=== PATIENT | female | born 1965 | race Caucasian/White ===

== ENCOUNTER 2023-09-28 21:38 | Observation (INO) | payer BC ==
--- OUTSIDE RECORDS SUMMARY | 2023-09-28 21:41 | XMS REPORT | Continuity of Care Document ---
Author Name Unknown Address [address] [place] [address] [facility] thconnect Address [address] [facility] [address] [place] [address] Care Team Providers Care Form Raiser Name Role Phone JUAN ALBERTO STEPHENSON Primary Care Physician Unavailab le Wade Montes De Oca Attending Clinician Unavailable GC_SWHATBIC_Cone_S Attending Clinician Unavailab le GC_SWHATBIC_Anding_R Attending Clinician Unavail able RADIOLOGY Attending Clinician Unavailable JUAN ALBERTO STEPHENSON Attending Clinician Unavailable Chris MILLING MACHINE OPERATOR GEARJuan Alberto Attending Clinician [phone], [facility] Attending Clinician Unavailable GC_SWHAWPRC_Fisher_H Attending Clinician Unavail able GC_SWHAOMC_Anding_R Attending Clinician Unavaila Wade Chawla Attending Clinician [phone] CHATA HUBER Attending Clinician Unavailable Kosta Montoya MD Attending Clinician [phone] KNOW, DOES_NOT Admitting Clinician Unavailable GC_SWHATBIC_Cone_S Admitting Clinician Unavailab le GC_SWHATBIC_Anding_R Admitting Clinician Unavail able GC_SWHAWPRC_Fisher_H Admitting Clinician Unavail able GC_SWHAOMC_Anding_R Admitting Clinician Unavaila ble Payers Payer Name Policy Type Policy Number Effective Date Expirati on Date Source [place] [id number] 2023 00:00:00 [employer] - OPEN ACCESS [id number] 2021 00:00:00 [employer] [facility] [id number] 2014 00:00:00 Problems Condition Name Condition Details Condition Category Status Onset Date Resolution Date Last Treatment Date Treating Clinician Comments Source Well woman exam with routine gynecologi ghulam exam Well woman exam with routine gynecologi ghulam exam Disease Active 03-08 00:00: 00 [facility] Morbid obesity Morbid obesity Disease Active 03-08 00:00: 00 [facility] Pelvic pain Pelvic pain Disease Active 12-07 00:00: 00 [facility] Dyspareuni a Dyspareuni a Disease Active 12-07 00:00: 00 [facility] Hematuria Hematuria Disease Active 12-07 00:00: 00 [facility] Rheumatoid arthritis Rheumatoid arthritis Disease Active 12-07 00:00: 00 [facility] Allergic rhinitis, unspecifie d allergic rhinitis type Allergic rhinitis, unspecifie d allergic rhinitis type Disease Active 11-26 00:00: 00 [facility] Essential hypertensi on Essential hypertensi on Disease Active 11-26 00:00: 00 [facility] Anxiety Anxiety Disease Active 11-26 00:00: 00 [facility] Obesity Obesity Disease Active 11-26 00:00: 00 [facility] Fall, initial encounter Fall, initial encounter Disease Active 11-26 00:00: 00 [facility] Allergies, Adverse Reactions, Alerts Allergy Name Allergy Type Status Severity Reaction(s) Onset Date Inactive Date Treating Clinician Comments Source No Known Allergie s DA Active U 12-23 00:00: 00 [facility] No Known Allergie s DA Active U 12-23 00:00: 00 [facility] Codeine Propensi ty to adverse reaction s to drug Active Other - See comments 02-06 00:00: 00 Paradoxic al reaction - becomes hyper with any codeine products [facility] CODEINE DRUG INGREDI Active Low Other-Cmnt 02-06 00:00: 00 [facility] Social History Social Habit Start Date Stop Date Quantity Comments Source History of tobacco use Cigarette Smoker [facility] Exposure to SARS-CoV-2 (event) 2022-11-27 00:00:00 2022-12-07 12:14:00 Not sure [facility] Alcohol intake 2022-12-07 00:00:00 2022-12-07 00:00:00 0 /d [facility] Tobacco use and exposure 2022-12-07 00:00:00 2022-12-07 00:00:00 Smokeless tobacco non-user [facility] History SDOH Alcohol Frequency 2022-12-05 00:00:00 2022-12-05 00:00:00 5 [facility] History SDOH Alcohol Std Drinks 2022-12-05 00:00:00 2022-12-05 00:00:00 1 [facility] History SDOH Alcohol Binge 2022-12-05 00:00:00 2022-12-05 00:00:00 2 [facility] History SDOH Social Connections Phone 2022-12-05 00:00:00 2022-12-05 00:00:00 98 [facility] History SDOH Social Connections Get Together 2022-12-05 00:00:00 2022-12-05 00:00:00 98 [facility] History SDOH Social Connections Sabianism 2022-12-05 00:00:00 2022-12-05 00:00:00 98 [facility] History SDOH Social Connections Membership 2022-12-05 00:00:00 2022-12-05 00:00:00 98 [facility] History SDOH Social Connections Meetings 2022-12-05 00:00:00 2022-12-05 00:00:00 98 [facility] History SDOH Social Connections Living 2022-12-05 00:00:00 2022-12-05 00:00:00 3 [facility] History SDOH Stress 2022-12-05 00:00:00 2022-12-05 00:00:00 4 [facility] History SDOH Financial 2022-12-05 00:00:00 2022-12-05 00:00:00 5 [facility] History SDOH Food Worry 2022-12-05 00:00:00 2022-12-05 00:00:00 1 [facility] History SDOH Food Scarcity 2022-12-05 00:00:00 2022-12-05 00:00:00 1 [facility] History SDOH Transport Med 2022-12-05 00:00:00 2022-12-05 00:00:00 2 [facility] History SDOH Transport Non-Med 2022-12-05 00:00:00 2022-12-05 00:00:00 2 [facility] History SDOH Housing Unable to Pay 2022-12-05 00:00:00 2022-12-05 00:00:00 2 [facility] History SDOH Housing Places Lived 2022-12-05 00:00:00 2022-12-05 00:00:00 1 [facility] History SDOH Housing Homeless Last Year 2022-12-05 00:00:00 2022-12-05 00:00:00 2 [facility] Sex Ass[birth year] At 1965 00:00:00 1965 00:00:00 [facility] Smoking Status Start Date Stop Date Source Never Smoker [facility] Ex-smoker 2022-12-07 00:00:00 2022-12-07 00:00:00 [facility] Medications Ordered Medication Name Filled Medication Name Start Date Stop Date Current Medication? Ordering Clinician Indication Dosage Frequency Signature (SIG) Comments Components Source montelukast 10 mg tablet 12-07 12:47: 50 Yes 10mg Take 1 tablet by mouth. [facility] estradioL 2 mg tablet 12-07 12:47: 50 Yes 2mg Take 1 tablet by mouth in the morning. [facility] meloxicam 7.5 mg tablet 12-07 12:47: 50 Yes 7.5mg Take 1 tablet by mouth in the morning. [facility] Nitrofurant oin&Nit. Macrocryst (MACROBID) 100 mg capsule 2022-0 12-07 12:47: 50 Yes 100mg Take 1 capsule by mouth in the morning and 1 capsule in the evening. [facility] busPIRone 10 mg tablet 2022-0 12-07 12:47: 50 Yes 10mg Take 1 tablet by mouth in the morning and 1 tablet in the evening. [facility] montelukast 10 mg tablet 2022-0 12-07 12:47: 50 Yes 10mg Take 1 tablet by mouth. [facility] estradioL 2 mg tablet 2022-0 12-07 12:47: 50 Yes 2mg Take 1 tablet by mouth in the morning. [facility] meloxicam 7.5 mg tablet 2022-0 12-07 12:47: 50 Yes 7.5mg Take 1 tablet by mouth in the morning. [facility] Nitrofurant oin&Nit. Macrocryst (MACROBID) 100 mg capsule 2022-0 12-07 12:47: 50 Yes 100mg Take 1 capsule by mouth in the morning and 1 capsule in the evening. [facility] busPIRone 10 mg tablet 2022-0 12-07 12:47: 50 Yes 10mg Take 1 tablet by mouth in the morning and 1 tablet in the evening. [facility] montelukast 10 mg tablet 2022-0 12-07 12:47: 50 Yes 10mg Take 1 tablet by mouth. [facility] estradioL 2 mg tablet 2022-0 12-07 12:47: 50 Yes 2mg Take 1 tablet by mouth in the morning. [facility] meloxicam 7.5 mg tablet 2022-0 12-07 12:47: 50 Yes 7.5mg Take 1 tablet by mouth in the morning. [facility] Nitrofurant oin&Nit. Macrocryst (MACROBID) 100 mg capsule 2022-0 12-07 12:47: 50 Yes 100mg Take 1 capsule by mouth in the morning and 1 capsule in the evening. [facility] busPIRone 10 mg tablet 12-07 12:47: 50 Yes 10mg Take 1 tablet by mouth in the morning and 1 tablet in the evening. [facility] montelukast 10 mg tablet 12-07 12:47: 50 Yes 10mg Take 1 tablet by mouth. [facility] estradioL 2 mg tablet 12-07 12:47: 50 Yes 2mg Take 1 tablet by mouth in the morning. [facility] meloxicam 7.5 mg tablet 12-07 12:47: 50 Yes 7.5mg Take 1 tablet by mouth in the morning. [facility] Nitrofurant oin&Nit. Macrocryst (MACROBID) 100 mg capsule 12-07 12:47: 50 Yes 100mg Take 1 capsule by mouth in the morning and 1 capsule in the evening. [facility] busPIRone 10 mg tablet 12-07 12:47: 50 Yes 10mg Take 1 tablet by mouth in the morning and 1 tablet in the evening. [facility] multivitami n capsule 12-07 12:44: 11 12-07 00:00 :00 No 1{capsu le} Take 1 Cap by mouth daily. [facility] multivitami n capsule 12-07 12:44: 11 12-07 00:00 :00 No 1{capsu le} Take 1 Cap by mouth daily. [facility] LOESTRIN FE 1 mg-20 mcg (21)/75 mg (7) tablet 12-07 12:44: 05 12-07 00:00 :00 No 1{tbl} Take 1 tablet by mouth daily. [facility] LOESTRIN FE 1 mg-20 mcg (21)/75 mg (7) tablet 12-07 12:44: 05 12-07 00:00 :00 No 1{tbl} Take 1 tablet by mouth daily. [facility] fexofenadin e HCl (MUCINEX ALLERGY ORAL) 12-07 12:44: 02 12-07 00:00 :00 No Take by mouth. [facility] fexofenadin e HCl (MUCINEX ALLERGY ORAL) 12-07 12:44: 02 12-07 00:00 :00 No Take by mouth. [facility] DOCOSAHEXAN OIC ACID/EPA (FISH OIL ORAL) 12-07 12:43: 56 12-07 00:00 :00 No Take by mouth daily. [facility] DOCOSAHEXAN OIC ACID/EPA (FISH OIL ORAL) 12-07 12:43: 56 12-07 00:00 :00 No Take by mouth daily. [facility] CETIRIZINE HCL (ZYRTEC ORAL) 12-07 12:38: 09 Yes Take by mouth as needed. [facility] CETIRIZINE HCL (ZYRTEC ORAL) 12-07 12:38: 09 Yes Take by mouth as needed. [facility] CETIRIZINE HCL (ZYRTEC ORAL) 12-07 12:38: 09 Yes Take by mouth as needed. [facility] CETIRIZINE HCL (ZYRTEC ORAL) 12-07 12:38: 09 Yes Take by mouth as needed. [facility] semaglutide (OZEMPIC) 0.25 mg or 0.5 mg(2 mg/1.5 mL) [facility] 12-07 00:00: 00 Yes [id number] .25mg inject 0.25 mg under the skin weekly. [facility] semaglutide (OZEMPIC) 0.25 mg or 0.5 mg (2 mg/3 mL) Ij 12-07 00:00: 00 Yes [id number] .25mg inject 0.25 mg under the skin weekly. [facility] semaglutide (OZEMPIC) 0.25 mg or 0.5 mg (2 mg/3 mL) Ij 12-07 00:00: 00 Yes [id number] .25mg inject 0.25 mg under the skin weekly. [facility] semaglutide (OZEMPIC) 0.25 mg or 0.5 mg (2 mg/3 mL) PnIj 3-0 4-07 00:00: 00 Yes [id number] .25mg inject 0.25 mg under the skin weekly. [facility] multivitami n capsule 02-16 13:56: 40 Yes 1{capsu le} Take 1 Cap by mouth daily. [facility] CALCIUM ORAL 02-16 13:56: 40 Yes Take by mouth daily. [facility] FLUTICASONE PROPIONATE (FLUTICASON E NASAL) 02-16 13:56: 40 Yes Use in each nostril as needed. [facility] Cholecalcif pavel, Vitamin D3, (VITAMIN D3) 2,000 unit capsule 02-16 13:56: 40 Yes 1{capsu le} Take 1 capsule by mouth 2 (two) times daily. [facility] omeprazole 20 mg capsule 02-16 13:56: 40 Yes 20mg Take 20 mg by mouth daily. [facility] fexofenadin e HCl (MUCINEX ALLERGY ORAL) 02-16 13:56: 40 Yes Take by mouth. [facility] CALCIUM ORAL 02-16 08:56: 40 Yes Take by mouth daily. [facility] FLUTICASONE PROPIONATE (FLUTICASON E NASAL) 02-16 08:56: 40 Yes Use in each nostril as needed. [facility] Cholecalcif pavel, Vitamin D3, (VITAMIN D3) 2,000 unit capsule 02-16 08:56: 40 Yes 1{capsu le} Take 1 capsule by mouth 2 (two) times daily. [facility] omeprazole 20 mg capsule 02-16 08:56: 40 Yes 20mg Take 20 mg by mouth daily. [facility] CALCIUM ORAL 02-16 08:56: 40 Yes Take by mouth daily. [facility] FLUTICASONE PROPIONATE (FLUTICASON E NASAL) 02-16 08:56: 40 Yes Use in each nostril as needed. [facility] Cholecalcif pavel, Vitamin D3, (VITAMIN D3) 2,000 unit capsule 02-16 08:56: 40 Yes 1{capsu le} Take 1 capsule by mouth 2 (two) times daily. [facility] omeprazole 20 mg capsule 02-16 08:56: 40 Yes 20mg Take 20 mg by mouth daily. [facility] CALCIUM ORAL 02-16 08:56: 40 Yes Take by mouth daily. [facility] FLUTICASONE PROPIONATE (FLUTICASON E NASAL) 02-16 08:56: 40 Yes Use in each nostril as needed. [facility] Cholecalcif pavel, Vitamin D3, (VITAMIN D3) 2,000 unit capsule 02-16 08:56: 40 Yes 1{capsu le} Take 1 capsule by mouth 2 (two) times daily. [facility] omeprazole 20 mg capsule 02-16 08:56: 40 Yes 20mg Take 20 mg by mouth daily. [facility] CALCIUM ORAL 02-16 08:56: 40 Yes Take by mouth daily. [facility] FLUTICASONE PROPIONATE (FLUTICASON E NASAL) 02-16 08:56: 40 Yes Use in each nostril as needed. [facility] Cholecalcif pavel, Vitamin D3, (VITAMIN D3) 2,000 unit capsule 02-16 08:56: 40 Yes 1{capsu le} Take 1 capsule by mouth 2 (two) times daily. [facility] omeprazole 20 mg capsule 02-16 08:56: 40 Yes 20mg Take 20 mg by mouth daily. [facility] olmesartan- hydrochloro thiazide (BENICAR HCT) 40-12.5 mg per tablet 02-16 00:00: 00 Yes [id number] 1{tbl} Take 1 tablet by mouth daily. [facility] olmesartan- hydrochloro thiazide (BENICAR HCT) 40-12.5 mg per tablet 02-16 00:00: 00 Yes [id number] 1{tbl} Take 1 tablet by mouth daily. [facility] olmesartan- hydrochloro thiazide (BENICAR HCT) 40-12.5 mg per tablet 02-16 00:00: 00 Yes [id number] 1{tbl} Take 1 tablet by mouth daily. [facility] olmesartan- hydrochloro thiazide (BENICAR HCT) 40-12.5 mg per tablet 02-16 00:00: 00 Yes [id number] 1{tbl} Take 1 tablet by mouth daily. [facility] citalopram 20 mg tablet 02-16 00:00: 00 Yes [id number] 20mg Take 1 tablet by mouth daily. [facility] olmesartan- hydrochloro thiazide (BENICAR HCT) 40-12.5 mg per tablet 02-16 00:00: 00 Yes [id number] 1{tbl} Take 1 tablet by mouth daily. [facility] citalopram 20 mg tablet 02-16 00:00: 00 12-07 00:00 :00 No [id number] 20mg Take 1 tablet by mouth daily. [facility] citalopram 20 mg tablet 02-16 00:00: 00 12-07 00:00 :00 No [id number] 20mg Take 1 tablet by mouth daily. [facility] benzonatate (TESSALON PERLES) 100 mg capsule 11-07 00:00: 00 Yes [id number] 100mg Take 1 capsule by mouth 3 (three) times daily. [facility] benzonatate (TESSALON PERLES) 100 mg capsule 11-07 00:00: 00 12-07 00:00 :00 No [id number] 100mg Take 1 capsule by mouth 3 (three) times daily. [facility] benzonatate (TESSALON PERLES) 100 mg capsule 11-07 00:00: 00 12-07 00:00 :00 No [id number] 100mg Take 1 capsule by mouth 3 (three) times daily. [facility] DOCOSAHEXAN OIC ACID/EPA (FISH OIL ORAL) 2017-09 13:41: 55 Yes Take by mouth daily. [facility] LOESTRIN FE 1 mg-20 mcg (21)/75 mg (7) tablet 2017-09 13:41: 55 Yes 1{tbl} Take 1 tablet by mouth daily. [facility] CETIRIZINE HCL (ZYRTEC ORAL) 01-28 20:05: 02 Yes Take by mouth as needed. [facility] Diclofenac Sodium (VOLTAREN) 1 % gel 2016-09 00:00: 00 Yes [id number] Take 2-4 grams twice a day as needed for pain [facility] Diclofenac Sodium (VOLTAREN) 1 % gel 2016-09 00:00: 00 12-07 00:00 :00 No [id number] 9107 Take 2-4 grams twice a day as needed for pain [facility] Diclofenac Sodium (VOLTAREN) 1 % gel 2016-09 00:00: 00 12-07 00:00 :00 No [id number] 9107 Take 2-4 grams twice a day as needed for pain [facility] naproxen (NAPROSYN) 500 mg tablet 2014-09 00:00: 00 Yes [id number] Take one tablet by mouth twice a day when necessary knee pain or joint pain. Take after eating [facility] naproxen (NAPROSYN) 500 mg tablet 2014-09 00:00: 00 12-07 00:00 :00 No [id number] Take one tablet by mouth twice a day when necessary knee pain or joint pain. Take after eating [facility] naproxen (NAPROSYN) 500 mg tablet 2014-09 00:00: 00 12-07 00:00 :00 No [id number] Take one tablet by mouth twice a day when necessary knee pain or joint pain. Take after eating [facility] solifenacin 5 mg tablet Take 1 tablet every day by oral route for 30 days. solifenacin 5 mg tablet Take 1 tablet every day by oral route for 30 days. No solifenaci n 5 mg tablet Take 1 tablet every day by oral route for 30 days. [facility] acetaminoph en 300 mg-codeine 30 mg tablet Take 1 tablet every 6 hours by oral route for 7 days. acetaminoph en 300 mg-codeine 30 mg tablet Take 1 tablet every 6 hours by oral route for 7 days. No 1 Q6H acetaminop hen 300 mg-codeine 30 mg tablet Take 1 tablet every 6 hours by oral route for 7 days. [facility] buspirone 10 mg tablet TAKE 1 TABLET BY MOUTH TWICE A DAY buspirone 10 mg tablet TAKE 1 TABLET BY MOUTH TWICE A DAY No buspirone 10 mg tablet TAKE 1 TABLET BY MOUTH TWICE A DAY [facility] estradiol 2 mg tablet TAKE 1 TABLET BY MOUTH EVERY DAY DIRECTED estradiol 2 mg tablet TAKE 1 TABLET BY MOUTH EVERY DAY DIRECTED No estradiol 2 mg tablet TAKE 1 TABLET BY MOUTH EVERY DAY DIRECTED [facility] ibuprofen 800 mg tablet Take 1 tablet 3 times a day by oral route for 6 days. ibuprofen 800 mg tablet Take 1 tablet 3 times a day by oral route for 6 days. No 1 TID ibuprofen 800 mg tablet Take 1 tablet 3 times a day by oral route for 6 days. [facility] magnesium magnesium No magnesium [facility] montelukast 10 mg tablet TAKE 1 TABLET BY MOUTH EVERY DAY montelukast 10 mg tablet TAKE 1 TABLET BY MOUTH EVERY DAY No montelukas t 10 mg tablet TAKE 1 TABLET BY MOUTH EVERY DAY [facility] olmesartan 40 mg-hydrochl orothiazide 12.5 mg tablet TAKE 1 TABLET BY MOUTH EVERY DAY olmesartan 40 mg-hydrochl orothiazide 12.5 mg tablet TAKE 1 TABLET BY MOUTH EVERY DAY No olmesartan 40 mg-hydroch lorothiazi de 12.5 mg tablet TAKE 1 TABLET BY MOUTH EVERY DAY [facility] omeprazole omeprazole No omeprazole [facility] progesteron e micronized 100 mg capsule TAKE 1 CAPSULE BY MOUTH EVERY DAY progesteron e micronized 100 mg capsule TAKE 1 CAPSULE BY MOUTH EVERY DAY No progestero ne micronized 100 mg capsule TAKE 1 CAPSULE BY MOUTH EVERY DAY [facility] Vital Signs Vital Name Observation Time Observation Value Comments Romaine burger Systolic blood pressure 2022-12-07 17:36:00 133 mm[Hg] [facility] Diastolic blood pressure 2022-12-07 17:36:00 84 mm[Hg] [facility] Heart rate 2022-12-07 17:36:00 79 /min [facility] Body temperature 2022-12-07 17:36:00 36.61 Gem [facility] Respiratory rate 2022-12-07 17:36:00 18 /min [facility] Body height 2022-12-07 17:36:00 162.6 cm [facility] Body weight 2022-12-07 17:36:00 94.666 kg [facility] BMI 2022-12-07 17:36:00 35.82 kg/m2 [facility] Oxygen saturation in Arterial blood by Pulse oximetry 2022-12-07 17:36:00 97 /min [facility] BP Diastolic 2020-12-23 00:00:00 78 mm[Hg] [facility] Height 2020-12-23 00:00:00 64 [in_i] [facility] BMI (Body Mass Index) 2020-12-23 00:00:00 37.4 kg/m2 [facility] BP Systolic 2020-12-23 00:00:00 138 mm[Hg] [facility] Body Weight 2020-12-23 00:00:00 218 [lb_av] [facility] Procedures Procedure Date / Time Performed Performing Clinician Source URINALYSIS 2022-12-07 18:58:00 Juan Alberto Stephenson [facility] THYROID STIMULATING HORMONE 2022-12-07 18:34:00 Juan Alberto Stephenson [facility] COMP. METABOLIC PANEL ([id number]) 2022-12-07 18:34:00 Juan Alberto Stephenson [facility] LIPID PANEL ([id number])(TOTAL CHOLESTEROL, TRIGLYCERIDES, HDL) 2022-12-07 18:34:00 Juan Alberto Stephenson [facility] CBC WITH DIFF 2022-12-07 18:34:00 Juan Alberto Stephenson [facility] GLYCOSYLATED HEMOGLOBIN (A1C) 2022-12-07 18:34:00 Juan Alberto Stephenson [facility] TDAP VACCINE, >11 YRS, IM 2022-12-07 17:58:43 [facility] Start Date/Time End Date/Time Encounter Type Admission Type Attending [facility] Facility Care Department Encounter ID Source 2021-01-05 07:07:12 Inpatient Wade Luna [facility] [id number] [facility] 2023-06-20 00:00:00 2023-06-20 00:00:00 Outpatient [facility] _Cone_S PRIV PRIV [id number] [facility] 2023-06-18 00:00:00 2023-06-18 00:00:00 Outpatient GC_[facility]WHATB[facility] _[facility]_S PRIV PRIV [id number] [facility] 2023-06-17 00:00:00 2023-06-17 00:00:00 Outpatient GC_SWHATBIC _Anding_R PRIV PRIV [id number] [facility] 2022-12-11 00:00:00 2022-12-11 00:00:00 Telephone Juan Alberto Stephenson [facility] [id number] [facility] 2022-12-07 13:45:00 2022-12-07 13:50:21 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 Visit 2, [facility] Juan Alberto Stephenson [facility] [id number] [facility] 2022-12-07 12:30:00 2022-12-07 13:27:45 Office Visit Juan Alberto Stephenson [facility] [id number] [facility] 2022-12-07 12:30:00 2022-12-07 13:27:45 Outpatient R JUAN ALBERTO STEPHENSON [facility] [id number] [facility] 2021-01-03 03:56:00 2021-01-03 03:56:00 Outpatient GC_[facility]AWPR[facility] _Fisher_H PRIV PRIV [id number] [facility] 2020-12-29 09:50:00 2020-12-29 09:50:00 Outpatient GC_[facility]AWPR[facility] _Fisher_H PRIV PRIV [id number] [facility] 2020-12-24 07:14:00 2020-12-24 07:14:00 Outpatient GC_SWHAOMC_ Anding_R PRIV PRIV [id number] [facility] 2020-12-24 07:14:00 2020-12-24 07:14:00 Outpatient GC_SWHAWPRC _Fisher_H PRIV PRIV [id number] [facility] 2020-12-23 04:23:00 2020-12-23 04:23:00 Outpatient GC_SWHAOMC_ Anding_R PRIV PRIV [id number] [facility] 2020-12-23 00:00:00 2020-12-23 00:00:00 Outpatient Wade Montes De Oca [facility] PRIV [id number] 2020-12-23 00:00:00 2020-12-23 00:00:00 Wade Montes De Oca MD: [address] [facility], [address], [place] [address] , Ph. [facility] - GC_[facility]_ [place] Office* [id number] [facility] 2020-12-19 03:59:00 2020-12-19 03:59:00 Outpatient GC_[facility]_ Anding_R PRIV PRIV [id number] [facility] 2020-12-17 02:15:00 2020-12-17 02:15:00 Outpatient GC_[facility]OM[facility]_ Anding_R PRIV PRIV [id number] [facility] 2020-12-14 02:42:00 2020-12-14 02:42:00 Outpatient GC_SWHAWPRC _Fisher_H PRIV PRIV [id number] [facility] 2020-12-12 00:00:00 2020-12-12 00:00:00 Katarzyna Villeda MD: [address], [address], [place] [address] , Ph. [phone] [facility] [facility]* [id number] [facility] 2020-12-08 00:00:00 2020-12-08 00:00:00 Katarzyna Villeda MD: [address], [address], [place] [address] , Ph. [phone] [facility] _[place] Office* [id number] [facility] 2020-11-19 08:45:00 2020-11-19 08:45:00 Outpatient CHATA BELTRE [facility] [id number] [facility] 2020-10-29 08:55:00 2020-10-29 08:55:00 Outpatient CHATA BELTRE [facility] [id number] [facility] 2020-02-11 00:00:00 2020-02-11 00:00:00 Kosta Salazar [address]2.840.114 [id number] 4.2.7.2.686 [id number] [facility] 2020-02-11 00:00:00 2020-02-11 00:00:00 Kosta Salazar [address]2.840.114 350.1.13.10 4.2.7.2.686 [id number] Results Test Description Test Time Test Comments Results Result Co mments Source HGB [id number] 05:46:00* Test Item Value Reference Range Interpretation Comme nts HEMOGLOBIN (test code = HGB) 12.2 g/dL 10.1-13.8 N HEMATOCRIT (test code = HCT) 38.0 % 32.5-41.8 N COVID 19 Asymptomatic IH [id number] 16:39:00* Test Item Value Reference Range Interpretation Comme nts COVID 19 Asymptomatic IH AG (test code = COVNONPUIAG) NEGATIVE NEGATIVE This test has be en authorized only for the detection ofproteins from SARS-CoV-2, not for any other viruses orpathogens. Negative results should be treated as presumptive andconfirmed with a molecular assay, if necessary for patientmanagement. Negative results do not rule out COVID-19 andshould not be used as the sole basis for treatment orpatient management decisions, including infection controldecisions. Negative results should be considered in thecontext of a patient's recent exposures, history and thepresence of clinical signs and symptoms consistent withCOVID-19. This test has not been FDA cleared or approved; the test hasbeen authorized by FDA under an Emergency Use Authorization(EUA) for use by laboratories certified under the CLIA thatmeet the requirements to perform moderate, high or waivedcomplexity tests. This test is authorized for use at thePoint of Care (POC), i.e., in patient care settingsoperating under a CLIA Certificate of Waiver, Certificate ofCompliance, or Certificate of Accreditation. This test is only authorized for the duration of thedeclaration that circumstances exist justifying theauthorization of emergency use of in vitro diagnostic testsfor detection and/or diagnosis of COVID-19 under Pboxbxh305(b)(1) of the Act, 21 U.S.C. 360bbb-3(b)(1), unless theauthorization is terminated or revoked sooner. HCG [id number] 11:39:00* Test Item Value Reference Range Interpretation Comme nts HCG SERUM (test code = HCG) <1 INTERPRETATION:V ALUES BETWEEN 15-20 milliInternational units/mL NEED TO BERETESTED WITHIN 48 HOURS. All units for these ranges are in milliInternationalunits/mL0-1 WK AFTER CONCEPTION 0-50 1-2 WKS AFTER CONCEPTION 40-3002-3 WKS AFTER CONCEPTION 100-1,0003-4 WKS AFTER CONCEPTION 500-6,0001-2 MONTHS AFTER CONCEPTION 5,000-200,0002-3 MONTHS AFTER CONCEPTION 10,000-100,0002ND TRIMESTER 3,000-50,0003RD TRIMESTER 1,000-50,000 SPECIMENS WITH AN HCG LEVEL FROM 0-6 milliInternationalunits/mL SHOULD BE CONSIDERED NEGATIVE CHEMISTRY 7 [id number] 11:25:00* Test Item Value Reference Range Interpretation Comme nts SODIUM (test code = NA) 141 mEq/L 135-145 N POTASSIUM (test code = K) 4.3 mEq/L 3.5-5.0 N CHLORIDE (test code = CL) 104 mEq/L 100-115 N CARBON DIOXIDE (test code = CO2) 30 mEq/L 22-31 N ANION GAP (test code = GAP) 11.40 10-20 N GLUCOSE (test code = GLU) 103 mg/dL 65-110 N BLOOD UREA NITROGEN (test co de = BUN) 14 mg/dL 7-18 N GLOMERULAR FILTRATION RATE ( test code = GFR) 74 ml/min >60 N CREATININE (test code = CREAT) 0.8 mg/dL 0.5-1.0 N CALCIUM (test code = CA) 9.1 mg/dL 8.4-10.2 N PROTHROMBIN [id number] 11:17:00* Test Item Value Reference Range Interpretation Comme [facility] PROTHROMBIN TIME PATIENT (te st code = PTP) 11.3 secs 10.1-12.3 N THROMBOPLASTIN TIME [id number] 11:17:00* Test Item Value Reference Range Interpretation Comme [facility] THROMBOPLASTIN TIME PARTIAL (test code = PTT) 38.8 secs 22-38 H CBC W/AUTO [id number] 11:09:00* Test Item Value Reference Range Interpretation Comme nts WHITE BLOOD CELL (test code = WBC) 7.7 K/mm3 6.5-12.3 N RED BLOOD CELL (test code = RBC) 4.35 M/mm3 3.51-4.69 N HEMOGLOBIN (test code = HGB) 13.6 g/dL 10.1-13.8 N HEMATOCRIT (test code = HCT) 42.0 % 32.5-41.8 H MEAN CELL VOLUME (test code = MCV) 96.6 fL 84.6-96.6 N MEAN CELL HGB (test code = MCH) 31.3 pg 27.3-33.9 N MEAN CELL HGB CONCETRATION ( test code = MCHC) 32.4 gm/dL 32.0-34.2 N RED CELL DISTRIBUTION WIDTH (test code = RDW) 13.3 % 12.2-16.3 N PLATELET COUNT (test code = PLT) 249 K/mm3 134-363 N MEAN PLATELET VOLUME (test c ode = MPV) 10.3 fL 9.2-12.7 N NEUTROPHIL % (test code = NT%) 66.6 % 57.9-77.3 N LYMPHOCYTE % (test code = LY%) 23.4 % 14.5-29.7 N MONOCYTE % (test code = MO%) 8.0 % 3.6-10.2 N EOSINOPHIL % (test code = EO%) 1.2 % 0.0-3.0 N BASOPHIL % (test code = BA%) 0.5 % 0.1-0.9 N NEUTROPHIL # (test code = NT#) 5.1 K/mm3 LYMPHOCYTE # (test code = LY#) 1.8 K/mm3 MONOCYTE # (test code = MO#) 0.6 K/mm3 EOSINOPHIL # (test code = EO#) 0.09 K/mm3 BASOPHIL # (test code = BA#) 0.0 K/mm3 RBC MORPHOLOGY REQUIRED (jerica t code = RBCM) NORMAL NORMAL PLATELET MORPHOLOGY REQUIRED (test code = PLTMR) NORMAL NORMAL Bacteria identified in Urine by [id number] 00:00:00* Test Item Value Reference Range Interpretation Comme nts culture, urine/sensitivity on all (test code = culture, urine/sensitivity on all) specimen number: [id number] [facility] MedicalUrinalysis complete panel - [id number] 00:00:00* Test Item Value Reference Range Interpretation Comme nts color (test code = color) yellow yellow-straw appearance (test code = appearance) clear clear specific gravity (test code = specific gravity) 1.013 1.005-1.035 leukocyte esterase (test code = leukocyte esterase) negative negative nitrite (test code = nitrite) negative negative pH (test code = pH) 5.0 5.0-9.0 protein (test code = protein) negative negative glucose (test code = glucose) negative negative ketones (test code = ketones) negative negative urobilinogen (test code = urobilinogen) 0.2 mg/dL See_Comment [Automated [employer]] The system which generated this result transmitted reference range: <=2.0. The reference range was not used to interpret this result as normal/abnormal. bilirubin (test code = bilirubin) negative negative occult blood (test code = occult blood) negative negative white blood cells (test code = white blood cells) 0-5 0-5 red blood cells (test code = red blood cells) 0-2 0-5 epithelial cells (test code = epithelial cells) 0-5 0-10 bacteria (test code = bacteria) none seen none seen casts, hyaline (test code = casts, hyaline) none seen none-trace [facility] Notes Date/Time Note Provider Source 2020-12-28 07:52:00 [id number] P5yMmrHzg4ik5I2HyAgCG1X3dosF0 vSH5BNzoQFkZtt50MXmXiwl5Fxqxvc68q95223-90-58Z53:5 2:00 [facility]Clinical NoteREPORT#:[id number] REPORT STATUS: SignedDATE:12/28/20 TIME: 0752 PATIENT: DARREN ARGUETA UNIT #: [id number]#: [id number] ROOM/BED: [facility]-ADOB: [birth year] AGE: 55 SEX: F ATTEND: Wade Montes De Oca [facility] AUTHOR: Wade Montes De Oca MD * ALL edits or amendments must be made on the electronic/computer document * Clinical NoteNote:POD #1 Pt had a good night. Ambulated and taking in some PO. Pain is adequately controlled. Phillips in place.Laboratory Tests: 12/28 0430 Hematology Hgb (10.1 - 13.8 g/dL) 12.2 Hct (32.5 - 41.8 %) 38.0 Vital Signs: Date Time Temp Pulse Resp B/P B/P Pulse O2 O2 Flow FiO2 Mean Ox Delivery Rate 12/28 0418 97.9 81 16 119/75 90.0 95 Room air 12/27 2353 86 93 12/27 2314 98.2 86 16 113/72 85.9 93 Room air 12/279 98.1 83 16 138/84 101.9 96 Room air 12/27 1823 97.7 73 16 149/84 105.6 93 04/27 1820 97.7 70 18 149/84 93 Room air 12/27 1800 69 18 143/77 96 Room air 12/27 1745 69 16 152/81 96 Room air 12/27 1730 65 12 135/72 100 Simple mask 12/27 1724 Simple 10 mask 12/27 1715 67 14 123/66 99 Simple 10 mask 12/27 1707 97.3 77 14 114/66 97 Simple 10 mask 12/27 1227 97.7 78 18 164/79 95 Room air Chest is clearHrt- RRRAbd is soft with appropriate tenderness + BSIncisions are non-inflamed and dry Ass- Doint wellPlan - DC home with Phillips. RTC in 3 weeks. Coordinate with GYNGU. Pt has DC meds. at 0756 RPT #:[id number] OF REPORT CLClinical wstv3033-95-94W20:52:00F.[id number] able for patient ojmsSWNCYLVIWFHOFN2672-18-89Z57:56:33 [facility] 2020-12-28 07:22:00 OFbmvhpwghv68968381w 8C/YWqWVm5ZE7tT4zoHJxLKTk0tgk QeyuiTUCe+Il/e2lkJ+GPdxC7yd7nMloUp4577-05-56O70:2 2:[id number] [facility] [address] PATIENT NAME: DARREN ARGUETA ADMIT DATE: 12/27/20ACCOUNT NO: [id number] ROOM NO: .2618 AGE: 55 SEX: F ADMITTING PHYSICIAN: Wade Montes De Oca MD ATTENDING PHYSICIAN: Wade Montes De Oca MD OPERATION DATE: 12/27/2020 PREOPERATIVE DIAGNOSES:1. Postmenopausal bleeding.2. Rectocele.3. Chronic constipation.4. Stress urinary incontinence.5. Urinary frequency. POSTOPERATIVE DIAGNOSES:1. Postmenopausal bleeding.2. Rectocele.3. Chronic constipation.4. Stress urinary incontinence.5. Urinary frequency.6. Umbilical hernia. PROCEDURES:1. Assist Dr. Wade Montes De Oca with total laparoscopic hysterectomy and bilateralsalpingo-oophorectomy.2. Posterior colporrhaphy.3. Retropubic sling ([employer] Advantage Fit).4. Cystoscopy.5. Umbilical hernia repair (1 cm). SURGEON: Katarzyna Villeda MD. MACHINE TOOL DRESSER: Dr. Yang. ANESTHESIA: General. ESTIMATED BLOOD LOSS: 100 mL. COMPLICATIONS: None. PROCEDURE IN DETAIL: The patient was taken to the operating room where she wasplaced under general anesthesia. She was then prepared and draped in the normalsterile fashion in the dorsal lithotomy position. A Phillips catheter was placedin the patient's bladder draining Pyridium-stained urine. The anterior lip ofthe cervical os was grasped with a single-tooth tenaculum and serially dilated. It was sounded to 8 cm. The blue tip was placed on the ADOLPH manipulator andplaced in the patient's cervical os. It was held in place with a 10 mLintrauterine balloon. Intravaginal occluder was inflated with 60 mL. An PATIENT NAME: DARREN ARGUETA infraumbilical skin incision was made with a scalpel after the area wasinfiltrated with 0.25% Marcaine. She was found to have a 1 cm fascial defect atthe umbilicus possibly from her prior laparoscopic surgery. The fascial edgeswere cleared of the hernia sac and 0 Vicryl was used to grasp the fascial edges. The mm laparoscope was placed in the patient's abdomen and held in place with aballoon. The abdomen was insufflated with carbon dioxide gas. A suprapubic5-mm port, right and left lateral 5-mm ports were placed under directvisualization. The total laparoscopic hysterectomy and bilateralsalpingo-oophorectomy were performed by Dr. Montes De Oca, see his dictation. Afterthe vaginal cuff was closed and hemostatic, the gas was removed. The ports wereremoved. The umbilical hernia was closed with 0 Vicryl. All skin incisionswere closed with 4-0 Monocryl and Dermabond. The retropubic sling and cystoscopy were performed. The urethral meatus wasgrasped with an Allis clamp. A midline incision was made. The cut edges wereretracted laterally. Dissection was carried out laterally to the pubic bone. The first arm of the [employer]vantage Fit sling was placed throughthe right side of the dissection, it was angled superiorly and anteriorlypiercing the rectus muscle and fascia and brought through the skin just to theright of midline. The same procedure was performed on the patient's left andthe Phillips catheter was removed. A cystoscopy was performed and she was found tohave no evidence of ureteral, urethral or bladder injuries. No masses orlesions were seen within the bladder. She had vigorous efflux ofPyridium-stained urine from bilateral ureteral orifices. The cystoscope wasremoved. The mesh arms were brought through the suprapubic incisions untilthere was no tension beneath the mid urethra. The plastic sleeves were cut andremoved securing the mesh into place. No tension was maintained between themesh and the mid urethra using a right angle clamp. Excess mesh was trimmed. The suprapubic incisions were closed with Dermabond. The vaginal incision wasclosed with 2-0 PDS. The Phillips catheter was replaced in the patient's bladder. The posterior colporrhaphy was performed. The posterior vaginal wall wasinfiltrated with 0.25% Marcaine. A midline incision was made. The cut edgeswere retracted laterally. Dissection was carried out laterally to the pelvicsidewalls and apically to the vaginal cuff. A site specific posteriorcolporrhaphy was performed using multiple sutures of 2-0 PDS. Once therectocele was completely reduced, the vaginal epithelium was minimally trimmedand repaired using 2-0 Monocryl. A rectal exam demonstrated no further evidenceof rectocele, no suture injury within the rectum. Vaginal packing was placedand she was awoken and taken to recovery room in stable condition. Sponge, lapand needle counts were correct x2. Dictated By: Katarzyna Villeda MD WT: OP:F.MARGARITO/WOOHI/NTSDD: 12/28/2020 07:22:13DT: 12/28/2020 07:46:42Conf#: [id number]/DID#: [id number] Authenticated by Katarzyna Lance MD On 12/29/2020 07:44:49 AM PATIENT NAME: DARREN ARGUETA at 0745 PATIENT NAME: DARREN ARGUETA zhfwls6558-97-72A92:46:00F.UOY69260962-8870YBSsmc lable for patient oqswRBBTOVZXIFOHJR2014-76-25M47:45:22 [facility] 2020-12-28 06:38:00 YTpidwvfbnm50185051y FBja9EDHzoXlrghfgtwpuh+KVRfm+ MPkrmx3274h8Y9U7XUonVsr54TlZyroOKp2908-22-16J07:3 8:00 [facility])Clinical NoteREPORT#:[id number] REPORT STATUS: SignedDATE:12/28/20 TIME: 06 PATIENT: DARREN ARGUETA UNIT #: [id number]#: [id number] [address] [birth year] AGE: 55 SEX: F ATTEND: Wade Montes De Oca [facility] AUTHOR: Katarzyna Villeda MD * ALL edits or amendments must be made on the electronic/computer document * Clinical NoteNote:S: Pt doing well, has no complaints, No Nausea/vomitning, ambulating, voiding via Phillips O:Laboratory Tests: 12/28 0430 Hematology Hgb (10.1 - 13.8 g/dL) 12.2 Hct (32.5 - 41.8 %) 38.0 Vital Signs: Date Time Temp Pulse Resp B/P B/P Pulse O2 O2 Flow FiO2 Mean Ox Delivery Rate 12/28 0418 97.9 81 16 119/75 90.0 95 Room air 12/27 2353 86 93 12/27 2314 98.2 86 16 113/72 85.9 93 Room air 12/27 2039 98.1 83 16 138/84 101.9 96 Room air 12/27 1823 97.7 73 16 149/84 105.6 93 12/27 1820 97.7 70 18 149/84 93 Room air 12/27 1800 69 18 143/77 96 Room air 12/27 1745 69 16 152/81 96 Room air 12/27 1730 65 12 135/72 100 Simple mask 12/27 1724 Simple 10 mask 12/27 1715 67 14 123/66 99 Simple 10 mask 12/27 1707 97.3 77 14 114/66 97 Simple 10 mask 12/27 1227 97.7 78 18 164/79 95 Room air 12/28 0700 12/27 2300 12/27 1500 Intake Total 1000.00 1800.00 Output Total 350 500 Balance 650.00 1300.00 Intake, IV 1000.00 1800.00 Output, 100 Estimated Blood Loss Output, Urine 350 400 Patient 97.7 kg Weight Weight Standing scale Measurement Method Gen: NADCV: rrlungs: unlabored breathingAbd: soft, nttp, incicions c/d/ipelvic: vaginal packing removed, no bleeding noted A/P55yo s/p TLH, BSO, GONZALO, Posterior repair, sling, cysto and umbilical hernia repais, POD#1, doing well 1. Postop-AFVSS, meetign all posttop milestones-pain controlled, ADAT-UOP adequate, to be DCd w/phillips 2.DVT ppx-SCDs, Lovenox, continue ambulation Dispo: Anticipate DC home today at 0738 RPT #:[id number] OF REPORT CLClinical eabv8536-28-93Q72:38:00F.[id number] able for patient wfymBKZYBYIQFAIXWM0983-12-03U56:38:32 [facility] 2020-12-27 16:16:00 RXsyritljzc45823677k sK1bXZMEVPIm7VgIRvhlq4EcjQ0I6 XSENHNdyQ1QN2mHBf1ej/rfgBVD6/w1Dxz0312-29-26D36:1 6:00 [facility])Clinical NoteREPORT#:[id number] REPORT STATUS: SignedDATE:12/27/20 TIME: 1616 PATIENT: DARREN ARGUETA UNIT #: [id number]#: [id number] ROOM[facility]BED: [facility]-ADOB: [birth year] AGE: 55 SEX: F ATTEND: Wade Montes De Oca MDADM AUTHOR: Wade Montes De Oca MD * ALL edits or amendments must be made on the electronic/computer document * Clinical NoteNote:BRIEF OPERATIVE NOTE Pre - PMB, probably endometrial polyp, chronic left adnexal pain. left ovarian cyst, probable pelvic adhesions and endo Post op - PMB, Left CCP, left ovarian cyst, bilateral adnexa ahesions Lavh with BSO and GONZALO AndingFisher EBL = 50no complGET at 1619 RPT #:[id number] OF REPORT CLClinical pmuc1212-82-50T74:16:00F.[id number] able for patient gpywTVFTMRVCJFUNWF2375-57-63E03:19:40 [facility] 2020-12-27 16:14:00 ECyysnxdxbg02658693o oNv7vx114vlRSDqp32RsjOUOz41HH 0NYBgjvMJ7mi7lhvQH2VzJbFoAi01Vw+Zm5902-61-11S25:1 4:[id number] [facility] [address] PATIENT NAME: DARREN ARGUETA ADMIT DATE: 12/27/20ACCOUNT NO: [id number] ROOM NO: [facility] AGE: 55 SEX: F ADMITTING PHYSICIAN: Wade Montes De Oca MD ATTENDING PHYSICIAN: Wade Montes De Oca MD OPERATION DATE: 12/27/2020 PREOPERATIVE DIAGNOSES: Postmenopausal bleeding, suspected endometrial polyp,chronic left pelvic pain, left ovarian cyst. POSTOPERATIVE DIAGNOSES: Postmenopausal bleeding, probable polyp, bilateraltubo-ovarian adhesions, left ovarian cyst, probable endometrioma. PROCEDURES: Laparoscopic-assisted vaginal hysterectomy with bilateralsalpingo-oophorectomy, bilateral adnexal adhesion lysis. SURGEON: Wade Montes De Oca MD CO-SURGEON: Amber Villeda MD ESTIMATED BLOOD LOSS: 50 mL. COMPLICATIONS: None. ANESTHESIA: General. FINDINGS: Upon visualization of the intra-abdominal cavity, the gallbladder wasslightly distended, but healthy. The liver appeared to be normal. The appendixwas visualized and found to be unremarkable. Attention to the pelvis, theanterior cul-de-sac was unremarkable. The uterus was slightly enlarged withirregular surface reflective of the fibroids that were seen on ultrasound andprobable adenomyosis. The peritoneal surface overlying the uterus had a mottledappearance to it. The left and right fallopian tubes as well as ovaries werenormal in appearance with the exception of a small 1 cm cystic structure in theleft ovary and general adhesions between the bilateral ovaries and the pelvicsidewalls. Exam under anesthesia was unremarkable with a normal vulva, vagina,and cervix and a small retroverted uterus. PROCEDURE IN DETAIL: The patient was taken to the operating room, placed in adorsal supine position. With an adequate level of general endotrachealanesthesia was obtained, the patient was repositioned in dorsal lithotomyposition. She was examined under anesthesia. She was then prepped and drapedin the usual fashion. A time-out was performed per protocol. A weightedspeculum was placed in the posterior vaginal vault. The HUMI was placed in thestandard fashion. A medium sized ring was used. A Phillips catheter was placedinto the bladder. Attention was then turned to the abdomen. The initialumbilical incision was then prepared by Dr. Amber Villeda including excision ofthe peritoneal hernial sac. A pursestring suture was placed by Dr. Villeda. A 5 PATIENT NAME: DARREN ARGUETA Cailin mm port was then placed. Additional ports were placed with the patient in adorsal supine Trendelenburg position and the abdomen insufflated. Each of theincisions were made by pretreating with injection of local. The three 5 mmports were then placed in the lower left and right as well as suprapubic regionsunder direct visualization without complication. Attention was then turned tothe left adnexa, many of the adhesions were taken down with the use of theHarmonic. The left adnexa was then grasped, elevated. The left ureter wasclearly identified. The infundibulopelvic ligament was bipolar cauterized andthen divided with the Harmonic device after being coagulated and then cut. TheHarmonic was then used to take down the mesovarium as well as mesosalpinges inthe direction of the uterus in a hemostatic fashion. The bipolar cautery wasthen brought in through the lower mid port. The left uterosacral ligament wasgrasped with a grasper from the right lower port. The suction transmission and protection engineer wasplaced in the lower left port. The proximal round ligament was then bipolarcauterized and then again repeat cauterized and divided with the Harmonic. Theleft superior aspect of the broad ligament was coagulated with the bipolar andthen divided with the Harmonic in the standard fashion. Excellent hemostasiswas obtained. The uterovesical peritoneum was then undermined and dividedslightly past midline. The anterior surface of the cervix was skeletonizedbluntly. The left uterosacral and uterine vessels were skeletonized with bluntdissection. The next bite of the left broad ligament that was in the midportion of the broad ligament was then bipolar cauterized and divided with theHarmonic. An identical procedure was performed on the patient's right. TheHarmonic was then used to divide the vagina overlying the HUMI ring in astandard fashion across most of the anterior surface of the vagina. Thiscontinued around to the posterior side slightly past midline. The Harmonic wasthen replaced in the left lower port and the division of the vaginal tissues wascompleted. The uterine specimen including bilateral adnexa was then removedfrom the abdominal cavity vaginally. The vaginal occlusive device was thenplaced. The vaginal cuff was partially closed with V-Loc suture and control ofthe procedure was returned to Dr. Amber Villeda who completed the rest of thesurgical procedures. Please see her dictations for those additional procedures. Dictated By: Wade Montes De Oca MD WT: OP:F.MARGARITO/ALONDRA/NTSDD: 12/27/2020 16:14:03DT: 12/27/2020 20:00:36Conf#: [id number]/DID#: [id number] Authenticated by Wade Montes De Oca MD On 01/23/2021 03:04:10 PM at 1504 PATIENT NAME: DARREN ARGUETA fchcfa1940-39-83J79:00:00F.[id number] lable for patient mfuuLWCRCANIOCWZIN8605-46-15W84:04:46 [facility] 2020-12-27 12:46:00 JYurcymiwaq45183377v R42mSRI9V3iM+EG7IAwQLZhbj7UQ0 bakRWsNimZ6bJbn8mjENBR/qfu3GahZMDO3450-21-37U42:4 6:367598-2855 [facility] [place] [id number] [place], [place] [address] PATIENT NAME: DARREN ARGUETA ADMIT DATE: 12/27/20ACCOUNT NO: [id number] ROOM NO: 2618 AGE: 55 SEX: F ADMITTING PHYSICIAN: Wade Montes De Oca MD ATTENDING PHYSICIAN: Wade Montes De Oca MD ADMISSION DATE: 12/27/2020 The patient is being admitted today 12/27/2020 for surgery. HISTORY OF PRESENT ILLNESS: The patient is a 55-year-old , with a historyof postmenopausal bleeding. The patient had recently undergone hysteroscopy forendometrial polyps. An endometrial biopsy in June was benign with noabnormalities seen. She also had her most recent pelvic ultrasound performed inOcto of 2019, showed a small uncomplicated retroverted uterus with findingsconsistent with adenomyosis. She had one small intramural fibroid. Theendometrium was approximately 5 mm. In the left ovary, there was a 1 cm lesionconsistent with an endometrioma. During her virtual visit on 09/16/2020, hector also mentioned some pelvic pain on the left, which was there on a regularbasis as well as dyspareunia. With her history of a left cystectomy in pastyears, there was suspicion of recurrent endometrioma as well as pelvicadhesions. The patient also mentions some support issues and for this, she hasbeen referred to Dr. Amber Villeda who will be cosurgeon at the time of herprocedure. Her last Pap smear is unremarkable. CURRENT MEDICATIONS: Supplied in ancillary list. They do include estradiol 2mg and micronized progesterone 100 mg a day. ALLERGIES: SHE HAS NO KNOWN DRUG ALLERGIES. FAMILY HISTORY: Reported as negative. SOCIAL HISTORY: Includes the fact that she was never a smoker. She exerciseson a limited basis. No abuse of activities. PAST SURGICAL HISTORY: Hysteroscopy in June 1994. She has a history of aleft cystectomy. PAST MEDICAL HISTORY: The patient list her past medical history asnoncontributory. PHYSICAL EXAMINATION:VITAL SIGNS: The patient is 5 feet 4 inches tall. She weighs 218 pounds, givenher BMI of 37.4, blood pressure 138/78. Her heart rate is 90.HEENT: Her pupils are equal, round, and reactive to light and accommodation.CHEST: Clear to auscultation.HEART: Has regular rate and rhythm without murmur or gallop.ABDOMEN: Soft, obese, nontender with positive bowel sounds.EXTREMITIES: Have no clubbing, cyanosis, or edema. PATIENT NAME: DARREN ARGUETA PELVIC: The vulva and vagina are unremarkable as is the cervix. Her uterus isdifficult to assess due to body habitus, but appeared to be small. The ovariesare nonpalpable. ASSESSMENT: At the time of this admission, postmenopausal bleeding, probablepolyps, chronic pelvic pain, left ovarian mass, probable endometrioma, andpelvic support issues. PLAN: The patient is to [facility]. She is scheduled for a laparoscopic-assisted vaginal hysterectomywith bilateral salpingo-oophorectomy. Dr. Amber Villeda will be cosurgeon. Please see her admit forms for her procedures. The laparoscopic-assistedvaginal hysterectomy with bilateral salpingo-oophorectomy have been reviewedwith the patient on more than one occasion including the risks and the benefits. Some of the risks including, but not exclusively, are bleeding, infection,damage to internal organs, and possible need for transfusion. The surgicalconsent has been reviewed in detail with the patient. A signed copy is nowincluded in her permanent medical record. All of her questions have beenanswered. Dictated By: Wade Montes De Oca MD WT: HP:FNEDA/ALONDRA/NTSDD: 12/27/2020 12:46:54DT: 12/27/2020 13:19:05Conf#: [id number]/DID#: [id number] by Wade Montes De Oca MD On 01/23/2021 03:04:08 PM at 1504 PATIENT NAME: DARREN ARGUETA and physical [id number]:19:00F.[id number] VAvailable for patient [id number]:04:46 [facility] 2020-12-23 11:47:00 [id number] [place] [id number] PATIENT NAME: DARREN ARGUETA ADMIT DATE: ACCOUNT NO: [id number] ROOM NO: AGE: 55 SEX: F ADMITTING PHYSICIAN: ATTENDING PHYSICIAN: Wade Montes De Oca MD Order:[id number] Reason : PRE-OP/ HTN (MOVED ECG LEADS x2) Test Date/Time Stamp:SatDec 23 2020 11:47:54Blood Pressure : / mmHGVent. Rate : 073 BPM Atrial Rate : 073 BPM P-R Int : 168 ms QRS Dur : 094 ms QT Int : 428 ms P-R-T Axes : 052 010 023 degrees QTc Int : 471 ms Normal sinus rhythmNonspecific T wave abnormalityProlonged QTAbnormal ECGNo previous ECGs availableConfirmed by YUDI CROW MD ([id number]) on 12/23/2020 9:08:40 PM Referred By: Wade Montes De Oca Confirmed by:YUDI CROW MD at 2105 PATIENT NAME: DARREN ARGUETA .[id number] AVAvailable for patient [id number]:09:03 [facility]
[2023-09-28] MEDS ORDERED: ASPIRIN 81 MG CHEWABLE TABLET ONE (22:14)
[2023-09-28] MEDS ORDERED: MAGNESIUM SULFATE 1 gm IVPB 1 GM/100 ML BAG IV ONE (22:15)
--- NOTE | 2023-09-28 22:21 | RAD REPORT ---
EXAM DESCRIPTION: Lior Single View09/28/2023 10:13 pm CLINICAL HISTORY: Chest pain COMPARISON: none FINDINGS: The lungs appear clear of acute infiltrate. The heart is normal size IMPRESSION: No acute abnormalities displayed
[2023-09-28 23:13] LABS: Specific Gravity < 1.005 (1.005-1.030); Urine Bilirubin NEGATIVE (Negative); Urine Blood Negative (Negative); Urine Clarity Clear (Clear); Urine Color Colorless (Yellow); Urine Glucose NEGATIVE (Negative); Urine Protein NEGATIVE (Negative); Urine Urobilinogen Normal (Normal)
[2023-09-28 23:14] LABS: Absolute Lymphocytes (CBC) 1.7 K/uL (0.7-4.9); Hematocrit 35.6 % (36.0-45.0); Lymphocytes % 22.8 % (15.3-44.8); MPV 8.2 fL (7.6-11.3); Platelets 196 thou/uL (152-406); RBC Red Blood Cell Count 3.91 M/uL (3.86-4.86)
[2023-09-28 23:34] LABS: Albumin 3.3 g/dL (3.4-5.0); Bilirubin Direct 0.1 mg/dL (0-0.2); Bilirubin Indirect, Calculated 0.1 mg/dL (0.2-0.8); Bilirubin Total 0.2 mg/dL (0.2-1.0); Magnesium 1.9 mg/dL (1.6-2.4); Potassium 3.6 mEq/L (3.5-5.1); Protein, Total 6.6 g/dL (6.4-8.2)
--- NOTE | 2023-09-28 23:48 | ER ---
Nurse's Notes [facility] Name: Hollie Argueta Age: 58 yrs Sex: Female : 1965 Arrival Date: 09/28/2023 Time: 21:38 Bed 20 Private MD: Diagnosis: Chest pain, unspecified;Weakness Presentation: 09/28 21:54 Chief complaint: EMS states: irregular heart beat and palpations. Patient states she cp4 had an abnormal stress test 2 weeks ago. Coronavirus screen: Vaccine status: Patient reports receiving the 2nd dose of the covid vaccine. Client denies travel out of the [place] in the last 14 days. At this time, the client does not indicate any symptoms associated with coronavirus-19. Ebola Screen: Patient negative for fever greater than or equal to 101.5 degrees Fahrenheit, and additional compatible Ebola Virus Disease symptoms Patient denies exposure to infectious person. Patient denies travel to an Ebola-affected area in the 21 days before illness onset. No symptoms or risks identified at this time. Initial Sepsis Screen: Does the patient meet any 2 criteria? No. Patient's initial sepsis screen is negative. Does the patient have a suspected source of infection? No. Patient's initial sepsis screen is negative. Risk Assessment: Do you want to hurt yourself or someone else? Patient reports no desire to harm self or others. Onset of symptoms was September 28, 2023. 21:54 Method Of Arrival: EMS: [facility] 21:54 Acuity: LALITA 3 cp4 Triage Assessment: 21:58 General: Appears in no apparent distress. Behavior is cooperative, appropriate for age, cp4 anxious. Pain: Denies pain. Cardiovascular: Reports palpitations. Historical: - Allergies: 21:58 PENICILLINS; cp4 - Immunization history:: Adult Immunizations up to date. - Social history:: Smoking status: Patient denies any tobacco usage or history of. Screenin:01 [facility] ED Fall Risk Assessment (Adult) History of falling in the last 3 months, cp4 including since admission No falls in past 3 months (0 pts) Confusion or Disorientation No (0 pts) Intoxicated or Sedated No (0 pts) Impaired Gait No (0 pts) Mobility Assist Device Used No (0 pt) Altered Elimination No (0 pt) Score/Fall Risk Level 0 - 2 = Low Risk Oriented to surroundings, Maintained a safe environment, Educated pt \T\ family on fall prevention, incl call for assistance when getting out of bed, Assessed \T\ reinforced patient's understanding of fall precautions, Provided non-skid footwear, Hourly rounding (assess needs \T\ fall precautionary measures) done. Abuse screen: Denies threats or abuse. Nutritional screening: No deficits noted. Tuberculosis screening: No symptoms or risk factors identified. Assessment: 22:01 Reassessment: Patient appears in no apparent distress at this time. General:. Pain: cp4 Denies pain. Pain does not radiate. Pain began gradually. 22:22 General: Appears comfortable, Behavior is calm, cooperative. Pain: Denies pain. Neuro: ha1 Level of Consciousness is awake, alert, obeys commands, Oriented to person, place, time, situation. Cardiovascular: Reports palpitations, Capillary refill < 3 seconds Patient's skin is warm and dry. Rhythm is sinus rhythm. Respiratory: Airway is patent Respiratory effort is even, unlabored, Respiratory pattern is regular, symmetrical. GI: No signs and/or symptoms were reported involving the gastrointestinal system. : No signs and/or symptoms were reported regarding the genitourinary system. Musculoskeletal: Circulation, motion, and sensation intact. Range of motion: intact in all extremities. 23:20 Reassessment: Patient and/or family updated on plan of care and expected duration. Pain ha1 level reassessed. Patient is alert, oriented x 3, equal unlabored respirations, skin warm/dry/pink. Patient denies pain at this time. Patient states feeling better. Patient states symptoms have improved. 09/29 00:27 Reassessment: Patient and/or family updated on plan of care and expected duration. Pain ha1 level reassessed. Patient is alert, oriented x 3, equal unlabored respirations, skin warm/dry/pink. Patient denies pain at this time. 01:30 Reassessment: Patient and/or family updated on plan of care and expected duration. Pain ha1 level reassessed. Patient is alert, oriented x 3, equal unlabored respirations, skin warm/dry/pink. 02:27 Reassessment: Patient and/or family updated on plan of care and expected duration. Pain ha1 level reassessed. Patient is alert, oriented x 3, equal unlabored respirations, skin warm/dry/pink. Vital Signs: 09/28 21:54 BP 153 / 84; Pulse 94; Resp 18; Temp 98.7; Pulse Ox 99% ; Weight 77.11 kg; Height 5 ft. cp4 4 in. ; 22:30 BP 136 / 83; Pulse 80; Resp 17 S; Pulse Ox 97% on R/A; ha1 23:00 BP 137 / 74; Pulse 84; Resp 17 S; Pulse Ox 98% on R/A; ha1 23:29 BP 128 / 75; Pulse 94; Resp 17 S; Pulse Ox 97% on R/A; ha1 09/29 00:27 BP 131 / 74; Pulse 81; Resp 17 S; Pulse Ox 96% on R/A; ha1 01:00 BP 130 / 75; Pulse 80; Resp 17 S; Pulse Ox 95% on R/A; ha1 02:00 BP 129 / 77; Pulse 88; Resp 17 S; Pulse Ox 100% on R/A; ha1 09/28 21:54 Body Mass Index 29.18 (77.11 kg, 162.56 cm) cp4 ED Course: 09/28 21:39 Patient arrived in ED. jj6 21:50 EKG done, by ED staff, reviewed by Lm Kaur MD. mc5 21:54 Rosina Cornejo is Primary Nurse. cp4 21:55 Lm Kaur MD is Attending Physician. [facility] 21:58 Triage completed. cp4 21:58 Arm band placed on right wrist. Patient placed in waiting room. cp4 22:01 No provider procedures requiring assistance completed. Patient maintains SpO2 cp4 saturation greater than 95% on room air. 22:01 Bed in low position. Call light in reach. Side rails up X 1. Client placed on cp4 continuous cardiac and pulse oximetry monitoring. NIBP monitoring applied. 22:15 XRAY Chest (1 view) In Process Unspecified. EDMS 22:30 Inserted saline lock: 20 gauge in left wrist, using aseptic technique. Blood collected. ha1 23:04 Basic Metabolic Panel Sent. ha1 23:04 CBC with Diff Sent. ha1 23:04 LFT's Sent. ha1 23:04 Magnesium Sent. ha1 23:04 NT PRO-BNP Sent. ha1 23:04 PT-INR Sent. ha1 23:04 Troponin HS Sent. ha1 23:46 Ugorji, Chinemerem, MD is Hospitalizing Provider. [facility] 09/29 03:02 Patient admitted, IV remains in place. ha1 Administered Medications: 09/28 23:04 Drug: Magnesium Sulfate IVPB 1 grams IVPB once over 1 hrs Route: IVPB; Infused Over: 1 ha1 hrs; Site: left wrist; 23:05 Not Given (pt. took it at home before coming over ): aspirinchewable tablet 324 mg PO ha1 once; 81 mg tablets x 4 09/29 00:33 Drug: Famotidine IVP 20 mg IVP once; dilute with 10 mL 0.9% NaCl; give over 2 minutes ha1 Route: IVP; Site: left antecubital; 00:33 Drug: Enoxaparin Sub-Q 1 mg/kg Sub-Q once Route: Sub-Q; Site: abdomen; ha1 Medication: 09/28 22:01 VIS not applicable for this client. cp4 Outcome: 23:47 Decision to Hospitalize by Provider. [facility] 09/29 03:01 Admitted to Med/surg accompanied by nurse, via wheelchair, room 207, with chart, Report ha1 called to GIBSON Echevarria Condition: stable Discharge instructions given to patient, family, Instructed on the need for admit, Demonstrated understanding of instructions, 03:02 Patient left the ED. 1 Signatures: Dispatcher [employer] EDLm Chappell MD MD cha Jeffries, Jennifer jj6 Yanira Toure RN RN 1 Blanche Rodriguez 5 Rosina Cornejo cp4
--- NOTE | 2023-09-28 23:48 | EDPHYS ---
Physician Documentation [facility] Name: Hollie Argueta Age: 58 yrs Sex: Female : 1965 Arrival Date: 09/28/2023 Time: 21:38 Bed 20 Private MD: ED Physician Lm Kaur HPI: 09/28 23:39 This 58 yrs old Female presents to ER via EMS with complaints of Chest Pain. karin 23:39 The patient or guardian reports chest pain that is located primarily in the substernal karin area, anterior chest wall, left. Onset: just prior to arrival, 2 hour(s) ago. The pain radiates to chest. Associated signs and symptoms: Pertinent positives: dizziness. The chest pain is described as a heaviness. Modifying factors: The symptoms are alleviated by nothing. the symptoms are aggravated by nothing. Severity of pain: At its worst the pain was mild in the emergency department the pain has resolved and did so just prior to arrival. The patient has experienced similar episodes in the past, several times. Historical: - Allergies: 21:58 PENICILLINS; cp4 - Immunization history:: Adult Immunizations up to date. - Social history:: Smoking status: Patient denies any tobacco usage or history of. ROS: 23:40 Constitutional: Negative for fever, chills, and weight loss, Eyes: Negative for injury, karin pain, redness, and discharge, ENT: Negative for injury, pain, and discharge, Neck: Negative for injury, pain, and swelling, Respiratory: Negative for shortness of breath, cough, wheezing, and pleuritic chest pain, Abdomen/GI: Negative for abdominal pain, nausea, vomiting, diarrhea, and constipation, Back: Negative for injury and pain, : Negative for injury, bleeding, discharge, and swelling, MS/Extremity: Negative for injury and deformity, Skin: Negative for injury, rash, and discoloration, Neuro: Negative for headache, weakness, numbness, tingling, and seizure, Psych: Negative for depression, anxiety, suicide ideation, homicidal ideation, and hallucinations, Allergy/Immunology: Negative for hives, rash, and allergies, Endocrine: Negative for neck swelling, polydipsia, polyuria, polyphagia, and marked weight changes, Hematologic/Lymphatic: Negative for swollen nodes, abnormal bleeding, and unusual bruising, 23:40 Cardiovascular: Positive for chest pain, of the chest, Exam: 23:40 Constitutional: This is a well developed, well nourished patient who is awake, alert, karin and in no acute distress. Head/Face: Normocephalic, atraumatic. Eyes: Pupils equal round and reactive to light, extra-ocular motions intact. Lids and lashes normal. Conjunctiva and sclera are non-icteric and not injected. Cornea within normal limits. Periorbital areas with no swelling, redness, or edema. ENT: Nares patent. No nasal discharge, no septal abnormalities noted. Tympanic membranes are normal and external auditory canals are clear. Oropharynx with no redness, swelling, or masses, exudates, or evidence of obstruction, uvula midline. Mucous membranes moist. Neck: Trachea midline, no thyromegaly or masses palpated, and no cervical lymphadenopathy. Supple, full range of motion without nuchal rigidity, or vertebral point tenderness. No Meningismus. Chest/axilla: Normal chest wall appearance and motion. Nontender with no deformity. No lesions are appreciated. Cardiovascular: Regular rate and rhythm with a normal S1 and S2. No gallops, murmurs, or rubs. Normal PMI, no JVD. No pulse deficits. Respiratory: Lungs have equal breath sounds bilaterally, clear to auscultation and percussion. No rales, rhonchi or wheezes noted. No increased work of breathing, no retractions or nasal flaring. Abdomen/GI: Soft, non-tender, with normal bowel sounds. No distension or tympany. No guarding or rebound. No evidence of tenderness throughout. Back: No spinal tenderness. No costovertebral tenderness. Full range of motion. Female : Normal external genitalia. Skin: Warm, dry with normal turgor. Normal color with no rashes, no lesions, and no evidence of cellulitis. MS/ Extremity: Pulses equal, no cyanosis. Neurovascular intact. Full, normal range of motion. Neuro: Awake and alert, GCS 15, oriented to person, place, time, and situation. Cranial nerves II-XII grossly intact. Motor strength 5/5 in all extremities. Sensory grossly intact. Cerebellar exam normal. Normal gait. Psych: Awake, alert, with orientation to person, place and time. Behavior, mood, and affect are within normal limits. 23:40 ECG was reviewed by the Attending Physician. Vital Signs: 21:54 BP 153 / 84; Pulse 94; Resp 18; Temp 98.7; Pulse Ox 99% ; Weight 77.11 kg; Height 5 ft. cp4 4 in. ; 22:30 BP 136 / 83; Pulse 80; Resp 17 S; Pulse Ox 97% on R/A; ha1 23:00 BP 137 / 74; Pulse 84; Resp 17 S; Pulse Ox 98% on R/A; ha1 23:29 BP 128 / 75; Pulse 94; Resp 17 S; Pulse Ox 97% on R/A; ha1 09/29 00:27 BP 131 / 74; Pulse 81; Resp 17 S; Pulse Ox 96% on R/A; ha1 01:00 BP 130 / 75; Pulse 80; Resp 17 S; Pulse Ox 95% on R/A; ha1 02:00 BP 129 / 77; Pulse 88; Resp 17 S; Pulse Ox 100% on R/A; ha1 09/28 21:54 Body Mass Index 29.18 (77.11 kg, 162.56 cm) cp4 MDM: 09/28 21:55 Patient medically screened. karin 23:41 Differential diagnosis: abnormal EKG, acute myocardial infarction, acute pericarditis, karin anxiety, chest wall pain, costochondritis, hiatal hernia, pancreatitis, pneumonia, pulmonary embolus, stable angina, thoracic aortic disection, unstable angina. HEART Score: History: Moderately Suspicious (1), ECG: Non specific repolarization disturbance / LBTB / PM (1), Age: > 45 and < 65 years (1), Risk Factors: > or = 3 Risk factors for atherosclerotic disease (2), [Hypercholesterolemia] [Hypertension] [+ Family HX] [Obesity] Troponin: < or = 1 x Normal Limit (0). The patient was given aspirin in the Emergency Department. DEMETRIUS Risk Score: 1 - Three or more CAD risk factors, [Family Hx], [HTN], [Elevated Cholesterol]. Data reviewed: vital signs, nurses notes, EMS record, lab test result(s), EKG, radiologic studies, plain films. Consideration of Admission/Observation Patient was admitted/placed on observation. Escalation of care including admission/observation considered. I considered the following discharge prescriptions or medication management in the emergency department Medications were administered in the Emergency Department. See MAR. Test considered but Not performed:. 09/28 21:56 Order name: Basic Metabolic Panel; Complete Time: 23:37 09/28 21:56 Order name: CBC with Diff; Complete Time: 23:37 09/28 21:56 Order name: LFT's; Complete Time: 23:37 09/28 21:56 Order name: Magnesium; Complete Time: 23:37 09/28 21:56 Order name: NT PRO-BNP; Complete Time: 23:37 09/28 21:56 Order name: PT-INR; Complete Time: 23:37 09/28 21:56 Order name: Troponin HS; Complete Time: 23:37 09/28 21:56 Order name: Lipase; Complete Time: 23:37 09/28 21:56 Order name: Urinalysis w/ reflexes; Complete Time: 23:17 09/28 23:38 Order name: D-Dimer 09/28 23:38 Order name: Alcohol Level 09/28 21:56 Order name: XRAY Chest (1 view); Complete Time: 23:17 09/28 21:56 Order name: EKG; Complete Time: 21:56 09/28 21:56 Order name: Cardiac monitoring; Complete Time: 23:04 09/28 21:56 Order name: EKG - Nurse/Tech; Complete Time: 22:04 09/28 21:56 Order name: IV Saline Lock; Complete Time: 23:04 09/28 21:56 Order name: Labs collected and sent; Complete Time: 23:04 09/28 21:56 Order name: O2 Per Protocol; Complete Time: 23:04 09/28 21:56 Order name: O2 Sat Monitoring; Complete Time: 23:04 09/28 23:38 Order name: Misc. Order: juice; Complete Time: 00:18 [facility] EC:40 Rate is 88 beats/min. Rhythm is regular. QRS [place] is Normal. OH interval is normal. QRS karin interval is normal. QT interval is normal. No Q waves. T waves are Normal. No ST changes noted. Clinical impression: NSR w/ Non-specific ST/T Changes and No evidence of ischemia. Interpreted by me. Reviewed by me. Administered Medications: 23:04 Drug: Magnesium Sulfate IVPB 1 grams IVPB once over 1 hrs Route: IVPB; Infused Over: 1 ha1 hrs; Site: left wrist; 23:05 Not Given (pt. took it at home before coming over ): aspirinchewable tablet 324 mg PO ha1 once; 81 mg tablets x 4 09/29 00:33 Drug: Famotidine IVP 20 mg IVP once; dilute with 10 mL 0.9% NaCl; give over 2 minutes ha1 Route: IVP; Site: left antecubital; 00:33 Drug: Enoxaparin Sub-Q 1 mg/kg Sub-Q once Route: Sub-Q; Site: abdomen; ha1 Disposition Summary: 09/28/23 23:47 Hospitalization Ordered Notes: Hospitalization Status: Observation karin Provider: Deisy Mack cha Location: Telemetry/MedSurg (observation) karin Condition: Stable karin Problem: new karin Symptoms: have improved karin Bed/Room Type: Standard [facility] Room Assignment: 207(09/29/23 02:18) rv1 Diagnosis - Chest pain, unspecified karin - Weakness karin Forms: - Medication Reconciliation Form karin - SBAR form karin - Leadership Thank You Letter karin Signatures: Dispatcher [employer] Lm Garcia MD MD cha Ayala, Heidy, RN RN ha1 Brenda Ralph rv1 Rosina Cornejo cp4 Corrections: (The following items were deleted from the chart) 02:18 09/28 23:47 karin rv1
[2023-09-29] MEDS ORDERED: ENOXAPARIN 80 MG/0.8 ML SQ ONE (00:17)
[2023-09-29] MEDS ORDERED: FAMOTIDINE 20 MG/2 ML VIAL IV ONE (00:19)
--- NOTE | 2023-09-29 02:35 | P.HP ---
Certification for Inpatient Patient admitted to: Observation With expected LOS: <2 Midnights Practitioner: I am a practitioner with admitting privileges, knowledge of patient current condition, hospital course, and medical plan of care. Services: Services provided to patient in accordance with Admission requirements found in Title 42 Section 412.3 of the Code of Federal Regulations Patient History Date of Service: 09/29/23 Reason for admission: Chest pain History of Present Illness: 58-year-old female presented to the ED with chest pain and palpitation. She recently had stress test 2 weeks ago due to inability to continue the exercise, the procedure was rescheduled for nuclear medicine stress test. She reported that her heartbeat was skipping during the procedure so it was aborted. She now presents this time with midsternal chest pain that has been occurring more frequently since this week associated with lightheadedness, shortness of breath and feeling fainting. She states that aspirin improves her symptoms. On arrival to the ED her vital signs are within normal limits. Labs showed bicarb 20, anion gap 16, BNP 291, potassium 3.5 and magnesium 1.9. EKG showed normal sinus rhythm. Chest x-ray with no acute finding. Allergies Penicillins Allergy (Verified 09/29/23 02:21) Itching Review of Systems 10-point ROS is otherwise unremarkable Physical Examination - Vital Signs Temperature: 98.7 F Blood Pressure: 128/75 Pulse: 80 Respirations: 17 Pulse Ox (%): 99 - Physical Exam General: Alert, In no apparent distress, Oriented x3 HEENT: Atraumatic, Normocephalic Neck: Supple, JVD not distended Respiratory: Clear to auscultation bilaterally, Normal air movement Cardiovascular: No edema, Regular rate/rhythm Gastrointestinal: Normal bowel sounds, Soft and benign, Non-distended Musculoskeletal: No swelling, No erythema, No tenderness Neurological: Normal speech, Normal strength at 5/5 x4 extr, Normal tone - Studies Laboratory Data (last 24 hrs) 09/28/23 09/28/23 09/28/23 22:45 22:45 22:45 WBC 7.30 Hgb 12.2 Hct 35.6 L Plt Count 196 PT 11.0 INR 1.00 Sodium 140 Potassium 3.6 BUN 16 Creatinine 0.78 Glucose 68 L Magnesium 1.9 Total Bilirubin 0.2 AST 17 ALT 19 Alkaline Phosphatase 47 Lipase 57 Assessment and Plan - Plan Atypical chest pain Palpitations Metabolic acidosis, anion gap Plan Monitor on telemetry Replace magnesium and potassium Repeat troponin Given IV fluids Follow-up echo Defer cardiology consult to primary team - Advance Directives Does patient have a Living Will: No Does patient have a Durable POA for Healthcare: No
[2023-09-29 03:14] VITALS: BMI 27.6
[2023-09-29] MEDS: ACETAMINOPHEN 325 MG TABLET PO PRN (03:26)
[2023-09-29] MEDS: NA CHLORIDE 0.9% 1,000 ML IV SCH ×2 (03:27→15:53)
[2023-09-29] MEDS ORDERED: POTASSIUM CL SA 10 MEQ TAB PO ONE (07:00)
[2023-09-29] MEDS: ENOXAPARIN 40 MG/0.4 ML SQ SCH (08:23)
[2023-09-29 22:22] VITALS: O2SAT 96
[2023-09-30] MEDS: NA CHLORIDE 0.9% 1,000 ML IV SCH (05:14)
[2023-09-30 06:27] LABS: Absolute Lymphocytes (CBC) 1.5 K/uL (0.7-4.9); Hematocrit 33.2 % (36.0-45.0); MCV 91.7 fL (80-100); MPV 8.1 fL (7.6-11.3); Platelets 192 thou/uL (152-406); RBC Red Blood Cell Count 3.62 M/uL (3.86-4.86)
[2023-09-30 06:44] LABS: Albumin 2.7 g/dL (3.4-5.0); Bilirubin Total 0.3 mg/dL (0.2-1.0); Phosphorus 2.4 mg/dL (2.5-4.9); Potassium 4.1 mEq/L (3.5-5.1); Protein, Total 5.5 g/dL (6.4-8.2)
[2023-09-30] MEDS: ENOXAPARIN 40 MG/0.4 ML SQ SCH (08:02)
[2023-09-30] MEDS ORDERED: REGADENOSON 0.4 MG/5 ML SYR IV ONE (13:39)
--- NOTE | 2023-09-30 14:28 | RAD REPORT ---
EXAM DESCRIPTION: NM - Rest Stress Cardiac Imaging - 09/30/2023 2:05 pm CLINICAL HISTORY: Chest pain COMPARISON: No comparisons TECHNIQUE: The patient was administered approximately 10.4 mCi of Tc 99m Sestamibi prior to resting SPECT imaging of the heart. The patient was then administered approximately 29.7 mCi of Tc 99m Sestam ibi following exercise or pharmacologic stress. Multiplanar SPECT images were reviewed. FINDINGS: No stress induced ischemic defect is seen to suggest stress induced ischemia. Questionable small fixed defect in the region of the apex. Evaluation is limited by splanchnic uptake, more prono unced on the stress images. No other significant fixed defect to suggest an infarct. The end diastolic volume is 90 ml, the end systolic volume is 28 ml, and the ejection fraction is 69 %. IMPRESSION: No evidence of stress induced ischemia. Questionable small fixed defect at the apex, favored to be artifactual. Possibility of a small apical infarct is considered less likely but not entirely excluded. Normal left ventricular ejection fraction of 69%
[2023-09-30] MEDS: ACETAMINOPHEN 325 MG TABLET PO PRN (14:37)
--- NOTE | 2023-09-30 15:20 | P.DS ---
Admission Date: 09/29/23 Discharge Date: 09/30/23 Disposition: ROUTINE DISCHARGE Discharge Condition: FAIR Reason for Admission: Chest pain - Problems (1) Chest pain Current Visit: Yes Status: Acute (2) Essential hypertension Current Visit: Yes Status: Acute Brief History of Present Illness: 58-year-old female presented to the ED with chest pain and palpitation. She recently attempted a stress test 2 weeks ago due to poor exercise tolerance, the exercise stress test was terminated and she was rescheduled for nuclear medicine stress test. She reported that her heartbeat was skipping during the procedure so it was aborted. She presented to the ED with midsternal chest pain that had been occurring more frequently over the past 1 week associated with lightheadedness, shortness of breath and feeling fainting. On arrival to the ED her vital signs were within normal limits. Labs showed bicarb 20, anion gap 16, BNP 291, potassium 3.5 and magnesium 1.9. EKG showed normal sinus rhythm. Chest x-ray showed no acute finding. Patient was hospitalized for further management. Hospital Course: She was placed under observation on the medical floor. Troponin trended negative. Patient was asymptomatic during the hospital stay. edge burnisher uppers showed no significant arrhythmia. Patient was evaluated by cardiology, nuclear stress test was done which showed no stress-induced ischemia. ACS has been ruled out. 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 Yanez for further management. Vital Signs/Physical Exam: Temp Pulse Resp BP Pulse Ox 96.8 F 64 15 135/73 96 09/30/23 04:00 09/30/23 04:00 09/30/23 04:00 09/30/23 04:00 09/30/23 04:00 General: Alert, In no apparent distress, Oriented x3 HEENT: Mucous membr. moist/pink Neck: JVD not distended Respiratory: Clear to auscultation bilaterally, Normal air movement Cardiovascular: No edema, Regular rate/rhythm, Normal S1 S2 Gastrointestinal: Normal bowel sounds, Soft and benign, Non-distended, No tenderness Musculoskeletal: No swelling Integumentary: No rashes, No cyanosis Neurological: Normal strength at 5/5 x4 extr Laboratory Data at Discharge: WBC 4.40 thou/uL (4.3-10.9) 09/30/23 06:00 Hgb 11.5 g/dL (12.0-15.0) L 09/30/23 06:00 Hct 33.2 % (36.0-45.0) L 09/30/23 06:00 Plt Count 192 thou/uL (152-406) 09/30/23 06:00 PT 11.0 SECONDS (9.5-12.5) 09/28/23 22:45 INR 1.00 09/28/23 22:45 Sodium 141 mEq/L (136-145) 09/30/23 06:00 Potassium 4.1 mEq/L (3.5-5.1) 09/30/23 06:00 BUN 12 mg/dL (7-18) 09/30/23 06:00 Creatinine 0.67 mg/dL (0.55-1.02) 09/30/23 06:00 Glucose 90 mg/dL (74-106) 09/30/23 06:00 Phosphorus 2.4 mg/dL (2.5-4.9) L 09/30/23 06:00 Magnesium 2.0 mg/dL (1.6-2.4) 09/30/23 06:00 Total Bilirubin 0.3 mg/dL (0.2-1.0) 09/30/23 06:00 AST 12 U/L (15-37) L 09/30/23 06:00 ALT 14 U/L (13-56) 09/30/23 06:00 Alkaline Phosphatase 37 U/L (45-117) L 09/30/23 06:00 Lipase 57 U/L (13-75) 09/28/23 22:45 Home Medications: Aspirin 1 tab PO DAILY 09/29/23 Buspirone HCl [Buspar] 1 tab PO BID 09/29/23 Cetirizine HCl [Zyrtec*] 1 tab PO DAILY 09/29/23 Cholecalciferol (Vitamin D3) [Vitamin D3] 5,000 units PO DAILY 09/29/23 Estradiol 1 tab PO DAILY 09/29/23 Fluticasone Propionate [Flonase Allergy Relief] 2 dose IN DAILY 09/29/23 Meloxicam [Mobic] 1 tab PO DAILY 09/29/23 Montelukast Sodium 1 tab PO BID 09/29/23 Nitrofurantoin Macrocrystal [Nitrofurantoin] 100 mg PO DAILY PRN 09/29/23 Olmesartan/Hydrochlorothiazide [Olmesartan-Hctz 40-12.5 mg Tab] 0.5 tab PO DAILY 09/29/23 Rosuvastatin [Crestor*] 1 tab PO DAILY 09/29/23 Vitamin E 1 tab PO DAILY 09/29/23 Physician Discharge Instructions: You were hospitalized because of recurrent chest pain and palpitation. Your cardiac enzymes monitored did not indicate you had a heart attack. Nuclear stress test was done which did not show any ischemia(lack of blood flow to any portion of your heart). You are advised to follow-up with Dr. Yanez with your stress test results for further management. No changes were made in your home medications. Followup: [facility] [UNKNOWN] - (As scheduled) Time spent managing pt's care (in minutes): 27
[2023-09-30 15:45] VITALS: BP 176/89; TEMP 98
[2023-09-30] MEDS ORDERED: HOME MED 1 EA UNK (Buspirone Hcl [Buspar] 10 MG Tablet) PO SCH (21:00)
[2023-09-30] MEDS ORDERED: MONTELUKAST 10 MG TAB PO SCH (21:00)
[2023-09-30] MEDS ORDERED: BUSPIRONE HCL 5 MG TABLET PO SCH (21:00)
--- NOTE | 2023-10-01 06:54 | TREADPHA ---
DX: CHEST PAIN Date of Study: 09/30/2023 Ht: 5' 5 " Wt: 166 lb 0 oz Consulting Physician: MILLICENT MEDICATIONS: TYLENOL, LOVENOX, ILMESARTAN/ HCTZ, ROSUVASTATIN HISTORY: 58 YEAR OLD FEMALE WITH COMPLIANTS OF CHEST PAIN. HISTORY OF HYPERTENSION, HYPERLIPIDEMIA, FAMILY HISTORY OF HEART DISEASE, DENIES SMOKING, DRINKS ONE TO TWO BEERS DAILY, DENIES PAST OR PRESENT USE OF DRUGS. PHYSICIAL EXAMINATION: RESTING B.P.: 152/87 RESTING H.R.: 70 RESTING EKG: NORMAL SINUS RHYTHM, WITHIN NORMAL LIMITS PROTOCOL: PHARMACOLOGIC EXERCISE TIME: 3:30 B.P. AT PEAK STRESS: 195/92 IMPRESSION: LEXISCAN INJECTED. CARDIOLITE GIVEN PER PROTOCOL. SEE NUCLEAR MEDICINE REPORT. OCCASIONAL PREMATURE VENTRICULAR COMPLEXES NOTED THROUGHOUT PROCEDURE. DENIES CHEST PAIN OR SHORTNESS OF BREATH. NO SUPRAVENTRICULAR TACHYCARDIA, VENTRICULAR TACHYCARDIA, PREMATURE ATRIAL COMPLEXES NOTED. NO ELECTROCARDIOGRAM CHANGES OF ISCHEMIA.
[2023-10-01] MEDS ORDERED: [UNRECOGNIZED DRUG - REMARK] NAS SCH (09:00)
[2023-10-01] MEDS ORDERED: VALSARTAN 80 MG TAB PO SCH (09:00)
[2023-10-01] MEDS ORDERED: VITAMIN E 400 IU CAP PO SCH (09:00)
[2023-10-01] MEDS ORDERED: OLMESARTAN HCTZ PO SCH (09:00)
[2023-10-01] MEDS ORDERED: ROSUVASTATIN 10 MG TAB PO SCH (09:00)
[2023-10-01] MEDS ORDERED: CETIRIZINE HCL 5 MG TABLET PO SCH (09:00)
[2023-10-01] MEDS ORDERED: VITAMIN E 200 UNIT PO SCH (09:00)
[2023-10-01] MEDS ORDERED: HOME MED 1 EA UNK (Cholecalciferol (Vitamin D3) [Vitamin D3] 1,000 UNIT Capsule) PO SCH (09:00)
[2023-10-01] MEDS ORDERED: VITAMIN D 5,000 UNIT CAP PO SCH (09:00)
[2023-10-01] MEDS ORDERED: ASPIRIN 81 MG CHEWABLE TABLET PO SCH (09:00)
--- NOTE | 2023-10-01 09:00 | ECHO ---
HEIGHT: 5 ft 5 in WEIGHT: 166 lb 0 oz DATE OF STUDY: 09/30/[address]: Deisy Mack MD 2-DIMENSIONAL: YES M.MODE: YES DOPPLER: YES COLOR FLOW: YES TDS: PORTABLE: YES DEFINITY: BUBBLE STUDY: DIAGNOSIS: ARRHYTHMIA CARDIAC HISTORY: CATHERIZATION: SURGERY: PROSTHETIC VALVE: PACEMAKER: MEASUREMENTS (cm) DIASTOLIC (NORMALS) SYSTOLIC (NORMALS) IVSd 0.9 (0.6-1.2) LA Diam 3.7 (1.9-4.0) LVEF 54% LVIDd 4.7 (3.5-5.7) LVIDs 3.4 (2.0-3.5) %FS 28% LVPWd 0.9 (0.6-1.2) Ao Diam 2.6 (2.0-3.7) 2 DIMENSIONAL ASSESSMENT: RIGHT ATRIUM: NORMAL LEFT ATRIUM: NORMAL RIGHT VENTRICLE: NORMAL LEFT VENTRICLE: NORMAL TRICUSPID VALVE: MILD TRICUSPID REGURGITATION MITRAL VALVE: MILD MITRAL REGURGITATION PULMONIC VALVE: NORMAL AORTIC VALVE: NORMAL PERICARDIAL EFFUSION: NONE AORTIC ROOT: NORMAL LEFT VENTRICULAR WALL MOTION: NORMAL DOPPLER/COLOR FLOW: SEE BELOW COMMENTS: 1. NORMAL LEFT VENTRICULAR EJECTION FRACTION 55-60% WITH NORMAL WALL MOTION 2. NORMAL DIASTOLIC FUNCTION 3. MILD MITRAL REGURGITATION 4. MILD TRICUSPID REGURGITATION 5. SMALL LEFT TO RIGHT INTRA-ATRIAL SHUNT LIKELY SMALL ATRIAL SEPTAL DEFECT TECHNOLOGIST: MARIMAR DUBOSE
== END 2023-09-30 18:16 | disposition home or self-care (01) ==
LOC: ER 21:38 → ERHOLD 09-29 01:39 → 2ND 09-29 02:21
PROVIDERS: ADMIT Internal Medicine; ATTEND Internal Medicine
DX: R07.89 Other chest pain (principal); R53.1 Weakness; I10 Essential (primary) hypertension; Z88.0 Allergy status to penicillin
CPT/HCPCS: 93005; 93017; 93306; 85025 ×2; 80048; 36415 ×2; 83735 ×2; 84100; 85610; 85379; 80076; 81003; 84484 ×2; 83690; 80053; 83880; 71045; 78452; 82077; J3475; J2785; J1650; J7030 ×3; A9500